=== PATIENT | male | born 1995 | race Two or more races ===

== ENCOUNTER 2016-09-10 12:07 | Emergency (ER) | payer SELFPAY ==
[~2016-09-10] VITALS: Ht 165.1 cm; Wt 58.5 kg
[~2016-09-10 12:07] MED LIST: IBUPROFEN600 MG ORAL; NORCO 5-325 TA1 EACH ORAL
[2016-09-10 12:19] VITALS: BP 113/53
[2016-09-10 13:12] LABS: BASOPHILS % (AUTO) 0.6 % (0.0-2.0); EOSINOPHILS % (AUTO) 0.1 % (0.0-3.0); LYMPHOCYTES % (AUTO) 13.3 % (20.0-45.0); MEAN CORPUSCULAR HEMOGLOBIN 30.5 PG (27.0-31.0); MEAN CORPUSCULAR HGB CONC 33.5 G/DL (32.0-36.0); MEAN CORPUSCULAR VOLUME 91 FL (80-99); MEAN PLATELET VOLUME 8.1 FL (6.5-10.1); MONOCYTES % (AUTO) 4.2 % (1.0-10.0); NEUTROPHILS % (AUTO) 81.8 % (45.0-75.0); PLATELET COUNT 191 K/UL (150-450); RED BLOOD COUNT 5.15 M/UL (4.70-6.10); RED CELL DISTRIBUTION WIDTH 12.1 % (11.6-14.8); WHITE BLOOD COUNT 8.4 K/UL (4.8-10.8)
[2016-09-10 13:13] LABS: APPEARANCE,URINE CLEAR; KETONES,URINE 3+ (NEGATIVE); LEUKOCYTE ESTERASE ,URINE 1+ (NEGATIVE); NITRITE,URINE NEGATIVE (NEGATIVE); PH,URINE 7 (4.5-8.0); PROTEIN,URINE 1+ (NEGATIVE); UROBILINOGEN,URINE 1 MG/DL (0.0-1.0)
[2016-09-10 13:19] LABS: ALANINE AMINOTRANSFERASE 16 U/L (3-41); ALBUMIN/GLOBULIN RATIO 1.5 (1.0-2.7); ANION GAP 16 (5-15); ASPARTATE AMINO TRANSFERASE 26 U/L (5-40); CALCIUM 9.3 mg/dL (8.6-10.2); CARBON DIOXIDE 24 mEQ/L (20-30); CHLORIDE 97 mEQ/L (98-107); CREATININE 0.8 mg/dL (0.7-1.2); GLOMERULAR FILTRATION RATE > 60 mL/min (>60); HEMOLYSIS 113; LIPASE 12 U/L (< 60); POTASSIUM 4.4 mEQ/L (3.4-4.9); SODIUM 137 mEQ/L (135-145); TOTAL PROTEIN 7.4 g/dL (6.6-8.7)
[2016-09-10 13:20] LABS: BACTERIA,URINE FEW /HPF; RBC,URINE 0-2 /HPF (0 - 0); SQUAMOUS EPITHELIAL CELL,UR OCCASIONAL /LPF (NONE/OCC)
[2016-09-10] MEDS ORDERED: Famotidine 20 MG/ 2ML VIAL IVP ONE ×2 (13:30→13:45)
[2016-09-10] MEDS ORDERED: Mylanta II UD 30ml ORAL ONE ×2 (13:30→13:45)
[2016-09-10] MEDS ORDERED: Lidocaine 2% Visc 15ml soln ORAL ONE ×2 (13:30→13:45)
[2016-09-10] MEDS ORDERED: Dicyclomine HCl 10mg/5ml oral soln ORAL ONE ×2 (13:30→13:45)
[2016-09-10 14:02] VITALS: BP 114/60
--- NOTE | 2016-09-10 14:03 | Emergency Room Report ---
History of Present Illness General Chief Complaint: Abdominal Pain Source: Patient Present Illness HPI 21-year-old male presents emergency department complaining of nausea, vomiting since yesterday status post eating at [employer]. Patient reports approximately 10 episodes of vomiting. Patient denies past medical history denies fevers, chills patient reports bilateral flank pain that is 4/10 in severity he described as a dull ache. Patient denies frequency, dysuria, hematuria. Patient reports that the last episode of vomiting had some scant blood-tinged to it and he was worried. Patient denies chest pain or abdominal pain other than epigastric cramping prior to vomiting episodes. Patient denies constipation, diarrhea, black tarry stools or blood in the stool. he denies ill contacts or recent travel. Denies CP, Palpitations, LOC, AMS, dizziness, Changes in Vision, Sensation, paresthesias, or a sudden severe headache. Allergies: Coded Allergies: No Known Allergies (Unverified , 11/17/15) Patient History Past Medical History: see triage record Past Surgical History: none Pertinent Family History: none Immunizations: UTD Reviewed Nursing Documentation: PMH: Agreed, PSxH: Agreed Nursing Documentation-PMH Past Medical History: No Stated History Review of Systems All Other Systems: negative except mentioned in HPI Physical Exam Vital Signs Date Time Temp Pulse Resp B/P Pulse Ox O2 Delivery O2 Flow Rate FiO2 09/10/16 12:19 98.1 67 18 113/53 96 Room Air Sp02 EP Interpretation: reviewed, normal General Appearance: no apparent distress, alert, GCS 15, non-toxic Head: normocephalic, atraumatic Eyes: bilateral eye PERRL, bilateral eye normal inspection ENT: hearing grossly normal, normal pharynx, no angioedema, normal voice Neck: full range of motion, supple/symm/no masses Respiratory: chest non-tender, lungs clear, normal breath sounds, speaking full sentences Cardiovascular #1: regular rate, rhythm, no edema, normal capillary refill Gastrointestinal: normal bowel sounds, non tender, soft, no guarding, no rebound, other - Negative [place] signs, Negative MacBurney's sign, Negative Rosvigns Sign, Negative Psoas, No Peritoneal signs. Rectal: deferred Genitourinary: normal inspection, no CVA tenderness Musculoskeletal: back normal, gait/station normal, normal range of motion, non- tender Neurologic: alert, oriented x3, responsive, motor strength/tone normal, sensory intact, normal gait, speech normal Psychiatric: judgement/insight normal, memory normal, mood/affect normal Skin: normal color, no rash, warm/dry, well hydrated Lymphatic: no adenopathy Medical Decision Making PA Attestation Dr. epstein is my supervising Physician whom patient management has been discussed with. Diagnostic Impression: Primary Impression: Urinary tract infection Qualified Codes: N30.00 - Acute cystitis without hematuria Additional Impression: Gastroenteritis ER Course 21-year-old male presents emergency department complaining of nausea, vomiting since yesterday status post eating at [employer]. Patient reports approximately 10 episodes of vomiting. Patient denies past medical history denies fevers, chills patient reports bilateral flank pain that is 4/10 in severity he described as a dull ache. Patient denies frequency, dysuria, hematuria. Patient reports that the last episode of vomiting had some scant blood-tinged to it and he was worried. Patient denies chest pain or abdominal pain other than epigastric cramping prior to vomiting episodes. Patient denies constipation, diarrhea, black tarry stools or blood in the stool. he denies ill contacts or recent travel. Ddx considered but are not limited to GE, colitis, acute appy, SBO, colitis, GI bleed, UTI, Pyelo Vital signs: pt. is afebrile, H&PE are most consistent with GE most likely viral in etiology ORDERS: -CBC unremarkable, no anemia, no leukocytosis -CMP: hypochloremia, otherwise unremarkable -Lipase: WNL -UA: some bacteria with elevated wbc's and some leuks- will treat for UTI ED INTERVENTIONS: -1000 NS iv hydration - 4mg IVP Zofran for nausea. -GI Cocktail -50mg Pepcid IV - Pt is able to tolerate oral fluids without vomiting. d/w pt. the results of his lab work, d/w pt. follow up with pcp. and will treat symptomatically. d/w pt. to return to ED with worsening or new symptoms. DISCHARGE: At this time pt. is stable for d/c to home. Will provide printed patient care instructions, and any necessary prescriptions. Care plan and follow up instructions have been discussed with the patient prior to discharge. Labs Test 09/10/16 12:28 09/10/16 12:51 Urine Color Yellow Urine Appearance Clear Urine pH 7 (4.5-8.0) Urine Specific [place] 1.015 (1.005-1.035) Urine Protein 1+ (NEGATIVE) Urine Glucose (UA) Negative (NEGATIVE) Urine Ketones 3+ (NEGATIVE) Urine Occult Blood Negative (NEGATIVE) Urine Nitrite Negative (NEGATIVE) Urine Bilirubin Negative (NEGATIVE) Urine Urobilinogen 1 MG/DL (0.0-1.0) Urine Leukocyte Esterase 1+ (NEGATIVE) Urine RBC 0-2 /HPF (0 - 0) Urine WBC 5-10 /HPF (0 - 0) Urine Squamous Epithelial Cells Occasional /LPF Urine Bacteria Few /HPF (NONE) White Blood Count 8.4 K/UL (4.8-10.8) Red Blood Count 5.15 M/UL (4.70-6.10) Hemoglobin 15.7 G/DL (14.2-18.0) Hematocrit 46.8 % (42.0-52.0) Mean Corpuscular Volume 91 FL (80-99) Mean Corpuscular Hemoglobin 30.5 PG (27.0-31.0) Mean Corpuscular Hemoglobin Concent 33.5 G/DL (32.0-36.0) Red Cell Distribution Width 12.1 % (11.6-14.8) Platelet Count 191 K/UL (150-450) Mean Platelet Volume 8.1 FL (6.5-10.1) Neutrophils (%) (Auto) 81.8 % (45.0-75.0) Lymphocytes (%) (Auto) 13.3 % (20.0-45.0) Monocytes (%) (Auto) 4.2 % (1.0-10.0) Eosinophils (%) (Auto) 0.1 % (0.0-3.0) Basophils (%) (Auto) 0.6 % (0.0-2.0) Sodium Level 137 mEQ/L (135-145) Potassium Level 4.4 mEQ/L (3.4-4.9) Chloride Level 97 mEQ/L (98-107) Carbon Dioxide Level 24 mEQ/L (20-30) Anion Gap 16 (5-15) Blood Urea Nitrogen 15 mg/dL (7-23) Creatinine 0.8 mg/dL (0.7-1.2) Estimat Glomerular Filtration Rate > 60 mL/min (>60) Glucose Level 95 mg/dL (74-106) Calcium Level 9.3 mg/dL (8.6-10.2) Total Bilirubin 1.0 mg/dL (0.0-1.2) Aspartate Amino Transf (AST/SGOT) 26 U/L (5-40) Alanine Aminotransferase (ALT/SGPT) 16 U/L (3-41) Alkaline Phosphatase 63 U/L (40-129) Total Protein 7.4 g/dL (6.6-8.7) Albumin 4.5 g/dL (3.5-5.2) Globulin 2.9 g/dL Albumin/Globulin Ratio 1.5 (1.0-2.7) Lipase 12 U/L (< 60) Last Vital Signs Date Time Temp Pulse Resp B/P Pulse Ox O2 Delivery O2 Flow Rate FiO2 09/10/16 12:19 98.1 18 113/53 96 Room Air 09/10/16 12:19 67 Disposition: HOME, SELF-CARE Condition: Stable Scripts Cephalexin* (KEFLEX*) 500 Mg Capsule 500 MG ORAL EVERY 12 HOURS for 7 Days, #14 CAP 0 Refills Prov: Betsy Jackson 09/10/16 Ondansetron Odt* (ZOFRAN ODT*) 4 Mg Tab.rapdis 4 MG ORAL Q6H Y for Nausea & Vomiting, #20 TAB Prov: Betsy Jackson 09/10/16 Referrals: NOT CHOSEN IPA/MD,REFERRING (PCP) Patient Instructions: Urinary Tract Infection, [id number], Viral Gastroenteritis, Adult Additional Instructions: Take medications as directed. Follow up with PCP in 3-5 days Return sooner to ED if new symptoms occur, or current symptoms become worse. - Please note that this Emergency Department Report was dictated using [employer] engine assembler technology software, occasionally this can lead to erroneous entry secondary to interpretation by the dictation equipment. Betsy Jackson September 10, 2016 14:03
[2016-09-10] MEDS ORDERED: CEPHALEXIN500 MG ORAL (14:04)
[2016-09-10] MEDS ORDERED: ZOFRAN ODT4 MG ORAL (14:04)
[2016-09-10 14:56] VITALS: BP 95/50
== END 2016-09-10 14:58 | disposition home or self-care (01) ==
LOC: EMR 13:11
DX: K52.9 Noninfective gastroenteritis and colitis, unspecified (principal); N39.0 Urinary tract infection, site not specified
CPT/HCPCS: 36415; 80053; 81003; 83690; 85025; 96360; 96374; 96375; 99284; J2405; S0028

== ENCOUNTER 2016-11-30 21:39 | Emergency (ER) | payer SELFPAY ==
[~2016-11-30] VITALS: Ht 162.6 cm; Wt 59.0 kg
[~2016-11-30 21:39] MED LIST changes: +CEPHALEXIN500 MG ORAL; +ZOFRAN ODT4 MG ORAL
[2016-11-30] MEDS ORDERED: NKM (22:11)
[2016-11-30] MEDS ORDERED: Norco 5mg/325mg tab ORAL ONE (22:15)
[2016-11-30] MEDS ORDERED: IBUPROFEN600 MG ORAL (23:10)
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
[2016-11-30 23:25] VITALS: BP 110/62
--- NOTE | 2016-12-01 11:21 | Diagnostic Imaging Report ---
Indication: TRAUMA Technique: 2 views of the right tibia and fibula Comparison: none Findings: No acute fractures. No dislocations. The joint spaces are preserved Impression: Negative
== END 2016-11-30 23:25 | disposition home or self-care (01) ==
LOC: EMR 21:50
DX: S80.11XA Contusion of right lower leg, initial encounter (principal); V09.9XXA Pedestrian injured in unspecified transport accident, initial encounter; Y93.55 Activity, bike riding; Y92.410 Unspecified street and highway as the place of occurrence of the external cause
CPT/HCPCS: 99283

== ENCOUNTER 2016-12-10 23:46 | Emergency (ER) | payer SELFPAY ==
[~2016-12-10] VITALS: Ht 162.6 cm; Wt 59.0 kg
[~2016-12-10 23:46] MED LIST changes: +NKM
[2016-12-10 23:55] VITALS: BP 114/74
[2016-12-10] MEDS ORDERED: NKM (23:56)
[2016-12-11] MEDS ORDERED: Tetanus/Diptheria/Pertussis Vaccine 0.5ml Syr IM ONE (00:45)
[2016-12-11] MEDS ORDERED: Norco 5mg/325mg tab ORAL ONE (00:45)
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
[2016-12-11 01:55] VITALS: BP 120/78
[2016-12-11] MEDS ORDERED: IBUPROFEN600 MG ORAL (01:56)
[2016-12-11 02:10] VITALS: BP 119/79
--- NOTE | 2016-12-11 09:48 | Diagnostic Imaging Report ---
Indication: Head trauma. Headache. Technique: Contiguous 5 mm thick transaxial imaging of the head obtained in a Siemens Sensation [address] scanner. Soft tissue and bone windows generated. Total Dose length Product (DLP): [address] Dose Index Volume (CTDIvol): 70.38 mGy Comparison: none Findings: The size and configuration of the cortical sulci, basal cisterns, and ventricles are within normal limits for age. There is no mass effect, midline shift, or edema identified. There is no evidence of acute hemorrhage or abnormal intra-axial or extra-axial fluid collections. The bones and soft tissues are unremarkable. Impression: No mass effect, edema or acute bleed. The CT scanner at [facility] is accredited by the [place] and the scans are performed using dose optimization techniques as appropriate to a performed exam including Automatic Exposure control.
== END 2016-12-11 02:10 | disposition home or self-care (01) ==
LOC: EMR 12-11 00:10
DX: S09.90XA Unspecified injury of head, initial encounter (principal); S01.01XA Laceration without foreign body of scalp, initial encounter; Z23 Encounter for immunization; V19.3XXA Pedal cyclist (driver) (passenger) injured in unspecified nontraffic accident, initial encounter; Y93.55 Activity, bike riding; Y92.9 Unspecified place or not applicable
CPT/HCPCS: 70450; 90471; 90715; 99284

== ENCOUNTER 2016-12-21 12:37 | Emergency (ER) | payer SELFPAY ==
[~2016-12-21] VITALS: Ht 165.1 cm; Wt 62.1 kg
[2016-12-21 12:52] VITALS: BP 121/77
[2016-12-21 13:01] VITALS: BP 121/77
--- NOTE | 2016-12-21 13:04 | Emergency Room Report ---
History of Present Illness General Chief Complaint: Wound Recheck/Suture Removal Source: Patient Present Illness HPI The patient is a 21 yo M presenting for staple removal. He was seen in this ED 7 days prior for scalp laceration. He denies any complaints at this time including pain, bleeding, headache, dizziness, nausea, vomiting Allergies: Coded Allergies: No Known Allergies (Unverified , 11/17/15) Patient History Past Medical History: see triage record Pertinent Family History: none Reviewed Nursing Documentation: PMH: Agreed, PSxH: Agreed Nursing Documentation-PMH Past Medical History: No Stated History Review of Systems All Other Systems: negative except mentioned in HPI Physical Exam Vital Signs Date Time Temp Pulse Resp B/P (MAP) Pulse Ox O2 Delivery O2 Flow Rate FiO2 12/21/16 12:42 98.1 89 16 121/77 96 Room Air Sp02 EP Interpretation: reviewed, normal General Appearance: no apparent distress, alert, GCS 15, non-toxic Head: normocephalic Eyes: bilateral eye normal inspection, bilateral eye PERRL ENT: hearing grossly normal, normal pharynx, no angioedema, normal voice Musculoskeletal: back normal, gait/station normal, normal range of motion, non- tender Neurologic: alert, oriented x3, responsive, motor strength/tone normal, sensory intact, speech normal Psychiatric: judgement/insight normal, memory normal, mood/affect normal, no suicidal/homicidal ideation Skin: normal color, no rash, warm/dry, well hydrated, wd healing/no infection noted Medical Decision Making PA Attestation Dr. Rai is my supervising physician. Patient management was discussed with my supervising physician Diagnostic Impression: Primary Impression: Removal of bradley Additional Impression: Encounter for wound re-check ER Course The patient is a 21 yo M presenting for staple removal Differential diagnosis considered: Wound infection, nonhealing wound, cellulitis , abscess PE: NAD [address] frontal scalp. Well healing. Well approximated. No bleeding. 3 bradley removed without complication. He will FU with PMD. ER precautions given Last Vital Signs Date Time Temp Pulse Resp B/P (MAP) Pulse Ox O2 Delivery O2 Flow Rate FiO2 12/21/16 12:42 98.1 89 16 121/77 96 Room Air Status: improved Disposition: HOME, SELF-CARE Condition: Improved Patient Instructions: Wound Closure Removal, Wound Check Additional Instructions: I discussed my findings with the patient. All questions and concerns have been answered. Treatment and medication compliance have been addressed. I advised the patient that they need to follow up with PMD in 3-5 days. Return to ED if symptoms worsen, new symptoms arise, or if needed for any reason. Patient verbalized understanding of discharge instructions. NAOMI ADKINS Dec 21, 2016 13:04
== END 2016-12-21 13:11 | disposition home or self-care (01) ==
LOC: EMR 13:06
DX: S01.01XD Laceration without foreign body of scalp, subsequent encounter (principal); Z48.02 Encounter for removal of sutures
CPT/HCPCS: 99281

== ENCOUNTER 2017-02-02 17:39 | Emergency (ER) | payer SELFPAY ==
--- NOTE | 2017-02-02 23:12 | Emergency Room Report ---
History of Present Illness General Chief Complaint: To Be Triaged Present Illness HPI The patient was called multiple times from the waiting room. He has left without being seen Allergies: Coded Allergies: No Known Allergies (Unverified , 11/17/15) Medical Decision Making PA Attestation Dr. Billings is my supervising physician. Patient management was discussed with my supervising physician ER Course The patient was called multiple times from the waiting room. He has left without being seen Disposition: LEFT W/OUT BEING SEEN Condition: Unknown Referrals: NOT CHOSEN IPA/,REFERRING (PCP) NAOMI ADKINS Feb 02, 2017 23:12
== END 2017-02-02 18:35 | disposition left against medical advice (07) ==
LOC: EMR 18:06
DX: S69.91XA Unspecified injury of right wrist, hand and finger(s), initial encounter (principal); Z53.21 Procedure and treatment not carried out due to patient leaving prior to being seen by health care provider
CPT/HCPCS: 99281

== ENCOUNTER 2017-04-30 17:13 | Emergency (ER) | payer SELFPAY ==
[~2017-04-30] VITALS: Ht 170.2 cm; Wt 63.5 kg
[2017-04-30 17:45] VITALS: BP 119/74
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
[2017-04-30] MEDS ORDERED: IBUPROFEN600 MG ORAL (18:58)
[2017-04-30 18:59] VITALS: BP 125/76
--- NOTE | 2017-05-01 12:46 | Diagnostic Imaging Report ---
Indication: Pain status post fall Technique: XRAY Elbow Min 3v R Comparison: None Findings: No definite/displaced fractures identified. No elbow joint effusion is seen. No radiopaque foreign body noted. Impression: No acute fracture or dislocation. No elbow joint effusion.
== END 2017-04-30 19:12 | disposition home or self-care (01) ==
LOC: EMR 17:55
DX: S50.01XA Contusion of right elbow, initial encounter (principal); V18.4XXA Pedal cycle driver injured in noncollision transport accident in traffic accident, initial encounter; Y93.55 Activity, bike riding; Y92.9 Unspecified place or not applicable
CPT/HCPCS: 99283

== ENCOUNTER 2018-09-02 17:59 | Emergency (ER) | payer SELFPAY ==
[~2018-09-02] VITALS: Ht 167.6 cm; Wt 63.5 kg
[2018-09-02 18:09] VITALS: BP 129/79
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
--- NOTE | 2018-09-02 18:15 | NUR ---
ED Nurse Note: C-collar applied on pt.
[2018-09-02] MEDS ORDERED: Methocarbamol 750mg tab ORAL ONE (18:30)
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
[2018-09-02] MEDS ORDERED: ROBAXIN-750750 MG PO (19:31)
[2018-09-02] MEDS ORDERED: IBUPROFEN600 MG ORAL (19:31)
[2018-09-02 19:45] VITALS: BP 117/83
[2018-09-02] MEDS ORDERED: Tylenol #3 tab (300mg/30mg) ORAL ONE (19:45)
[2018-09-02 20:00] VITALS: BP 117/83
--- NOTE | 2018-09-02 20:05 | NUR ---
ER DISCHARGE NOTE: Patient is cleared to be discharged per ERMD, pt is aox4, on room air, with stable vital signs. pt was given dc and prescription instructions, pt was able to verbalize understanding, pt id band removed without complications. pt is able to ambulate with steady gait. pt took all belongings. with mother to drive, nad noted during d/c to home.
--- NOTE | 2018-09-03 09:13 | Diagnostic Imaging Report ---
Indication: Neck pain. Technique: Continuous helical imaging of the cervical spine was obtained transaxially from the skull base to the upper thoracic spine. 2-D coronal and sagittal reformatted images were obtained. Automatic Exposure Control was utilized. Total Dose length Product (DLP): 1601.[address] Dose Index Volume (CTDIvol): 70.38,13.06 mGy Comparison: None Findings: There is no evidence of an acute fracture or malalignment. Atlantoaxial alignment appears normal. Height and configuration of the vertebral bodies and intervertebral discs are within normal limits. Uncovertebral joints and facets are unremarkable. There is no soft tissue swelling. There are a few paraseptal blebs in the apical aspects of both lungs. Impression: Negative cervical spine CT. Paraseptal blebs at the lung apices, nonspecific in nature. Note: The preliminary reading by [facility] stated "pulmonary emphysema" presumably on the basis of the presence of these paraseptal blebs. Disagree with this diagnosis. Paraseptal blebs are nonspecific especially at young age and commonly seen in healthy individuals and people who smoke. Their presence do not necessarily indicate pulmonary emphysema. The CT scanner at [facility] is accredited by the [employer] and the scans are performed using dose optimization techniques as appropriate to a performed exam including Automatic Exposure control.
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
--- NOTE | 2018-09-03 11:54 | Diagnostic Imaging Report ---
Indication: left ankle pain Comparison: None Findings: 3 views of the left ankle obtained. No acute fracture, malalignment, periostitis, or osteochondral defects are identified. Soft tissues are unremarkable. Impression: No acute findings
== END 2018-09-02 20:00 | disposition home or self-care (01) ==
LOC: EMR 18:30
DX: S00.411A Abrasion of right ear, initial encounter (principal); S90.511A Abrasion, right ankle, initial encounter; S00.03XA Contusion of scalp, initial encounter; V13.4XXA Pedal cycle driver injured in collision with car, pick-up truck or van in traffic accident, initial encounter; Y93.55 Activity, bike riding; Y92.410 Unspecified street and highway as the place of occurrence of the external cause
CPT/HCPCS: 70450; 71045; 72125; 99284